=== PATIENT | male | born 1935 | race Caucasian/White ===

== ENCOUNTER 2021-02-25 02:51 | Outpatient (CLI) | payer BC, MEDICARE | END 2021-02-25 02:52 | disposition critical access hospital (66) | LOC: EMS 02:51 | DX: R06.02 Shortness of breath (principal) | CPT/HCPCS: A0425; A0427 ==

== ENCOUNTER 2021-02-25 03:02 | Emergency (ER) | payer BC, MEDICARE ==
[2021-02-25] MEDS ORDERED: SODIUM CHLORIDE 0.9% 1,000 ML IV STA (03:23)
[2021-02-25 03:32] LABS: BASOPHILS % (AUTO) 0.3 %; EOSINOPHILS % (AUTO) 0.1 %; LYMPHOCYTES # (AUTO) 0.7 10^3/uL (1.5-3.5); LYMPHOCYTES % (AUTO) 6.4 %; MEAN CORPUSCULAR HEMOGLOBIN 24.2 pg (27.0-31.0); MEAN CORPUSCULAR VOLUME 92.9 fL (80.0-94.0); MEAN PLATELET VOLUME 11.6 fL (7.4-11.4); MONOCYTES # (AUTO) 0.8 10^3/uL (0.0-1.0); MONOCYTES % (AUTO) 7.2 %; NEUTROPHILS # (AUTO) 9.2 10^3/uL (1.5-6.6); NEUTROPHILS % (AUTO) 84.1 %; NRBC ABSOLUTE COUNT (AUTO) 0.03 x10^3/uL; NUCLEATED RED BLOOD CELLS AUTO 0.3 /100WBC; PLT - PLATELET COUNT 283 10^3/uL (130-450); RED BLOOD COUNT 2.11 10^6/uL (4.70-6.10); RED CELL DISTRIBUTION WIDTH 15.9 % (12.0-15.0); WHITE BLOOD COUNT 10.9 x10^3/uL (4.8-10.8)
--- NOTE | 2021-02-25 03:33 | ED Physician Documentation ---
History of Present Illness - Stated complaint Stated Complaint: SOA - Chief complaint Chief Complaint: Resp - History obtained from History obtained from: Patient, Family (daughter (POA)), EMS, Other (records from [facility]) - Additonal information Additional information: 85yM with pmh dementia, paroxysmal afib, aortic valve replacement, htn, copd, hcv, chf, acquired stomach AVM, GIB, p/w lethargy and shortness of breath from [facility] on [facility] where he recently has been placed. EMS reported he was hypotensive and bradycardic in the field, improving after 1 mg atropine to 89/50 and HR in 50s. patient AOX1 on arrival to ED (thinks he is in [place] at [facility] and is unable to state month or year). Daughter who is POA has limited health information and most info is obtained from records from [facility] where he was most recently seen 01/23/21 with hb 8.3 at that time. He does have a living will with healthcare guidelines but no official POLST or DNR/DNI form. Further history limited by patient dementia. Review of Systems Unable to obtain: Dementia PD PAST MEDICAL HISTORY - Present Medications Home Medications: Ambulatory Orders Medication Instructions Recorded Confirmed Acetaminophen [Acetaminophen Extra 500 mg PO Q6HR PRN 02/25/21 02/25/21 Strength] Ascorbic Acid [Vitamin C] 500 mg PO DAILY 02/25/21 02/25/21 Atorvastatin [Lipitor] 20 mg PO DAILY 02/25/21 02/25/21 Calcium Carbonate [Tums (Calcium 500 mg PO TID 02/25/21 02/25/21 Carbonate 500mg)] Cholecalciferol (Vitamin D3) 1 cap PO BID 02/25/21 02/25/21 [Vitamin D3] Clopidogrel [Plavix] 1 tab PO DAILY 02/25/21 02/25/21 Cyanocobalamin (Vitamin B-12) 1 cap PO BID 02/25/21 02/25/21 [Vitamin B-12] Digoxin [Lanoxin] 125 mcg PO DAILY 02/25/21 02/25/21 Diltiazem HCl [Cardizem Cd] 360 mg PO DAILY 02/25/21 02/25/21 Ferrous Sulfate 325 mg PO DAILY 02/25/21 02/25/21 Furosemide [Lasix] 20 mg PO DAILY 02/25/21 02/25/21 Lisinopril [Zestril] 2.5 mg PO DAILY 02/25/21 02/25/21 Metoprolol Succinate 100 mg PO BID 02/25/21 02/25/21 Multivit-Min/FA/Lycopen/Lutein 1 tab PO DAILY 02/25/21 02/25/21 [Centrum Silver Men Tablet] Pantoprazole [Protonix] 40 mg PO BID 02/25/21 02/25/21 Ubidecarenone [Coenzyme Q-10] 1 cap PO TID 02/25/21 02/25/21 - Allergies Allergies/Adverse Reactions: Allergies Allergy/AdvReac Type Severity Reaction Status Date / Time lactose Allergy Unknown Verified 02/25/21 03:23 tramadol Allergy Unknown Verified 02/25/21 03:23 PD ED PE NORMAL - Vitals Vital signs reviewed: Yes - General General: Other (AOX1, elderly appearing, pale appearing) - HEENT HEENT: Atraumatic, PERRL, EOMI, Other (pale conjunctiva) - Neck Neck: Supple, no meningeal sign - Cardiac Cardiac: Other (bradycardic rate, regular rhythm) - Respiratory Respiratory: No respiratory distress, Clear bilaterally - Abdomen Abdomen: Non tender, Non distended - Derm Derm: Normal color, Warm and dry - Extremities Extremities: No deformity - Neuro Neuro: No motor deficit, No sensory deficit - Psych Psych: Normal mood, Normal affect Results - Vitals Vitals: Oxygen O2 Source Nasal cannula Oxygen Flow Rate 2 - EKG (time done) 0310 Rate: Rate (enter#) (53) Rhythm: NSR [place]: LAD - Labs Labs: Microbiology 02/25/21 03:31 Blood Culture - Preliminary Blood NO GROWTH AFTER 1 DAY 02/25/21 03:31 Blood Culture - Preliminary Blood NO GROWTH AFTER 1 DAY 02/25/21 03:10 Occult Blood - Final Stool Laboratory Tests 02/25/21 02/25/21 02/25/21 03:10 03:10 03:10 WBC 10.9 H RBC 2.11 L Hgb 5.1 L* Hct 19.6 L* MCV 92.9 MCH 24.2 L MCHC 26.0 L RDW 15.9 H Plt Count 283 MPV 11.6 H Neut # (Auto) 9.2 H Lymph # (Auto) 0.7 L [place] # (Auto) 0.8 Eos # (Auto) 0.0 Baso # (Auto) 0.0 Absolute Nucleated RBC 0.03 Nucleated RBC % 0.3 Manual Slide Review Indicated WBC Morphology NORMAL APPEARANCE Platelet Estimate NORMAL (130-450,000) Platelet Morphology NORMAL APPEARANCE RBC Morph Micro Appear 1+ POLYCHROMASIA PT INR APTT Sodium 144 Potassium 3.9 Chloride 114 H Carbon Dioxide 19 L Anion Gap 11.0 BUN 55 H Creatinine 0.9 Estimated GFR (MDRD) 81 L Glucose 111 H Lactic Acid Calcium 5.7 L* Magnesium Total Bilirubin 0.3 AST 17 ALT 12 Alkaline Phosphatase 31 L Troponin I High Sens 18.1 Total Protein 3.3 L Albumin 1.9 L Globulin 1.4 L Albumin/Globulin Ratio 1.4 Lipase 27 Urine Color Urine Clarity Urine pH Ur Specific [place] Urine Protein Urine Glucose (UA) Urine Ketones Urine Occult Blood Urine Nitrite Urine Bilirubin Urine Urobilinogen Ur Leukocyte Esterase Urine RBC Urine WBC Ur Squamous Epith Cells Urine Bacteria Urine Culture Comments Nasal Adenovirus (PCR) Nasal B. parapertussis DNA (PCR) Nasal Coronavir 229E PCR Nasal Coronavir HKU1 PCR Nasal Coronavir NL63 PCR Nasal Coronavir OC43 PCR Nasal Enterovir/Rhinovir PCR Nasal Influenza B PCR Nasal Influenza A PCR Nasal Parainfluen 1 PCR Nasal Parainfluen 2 PCR Nasal Parainfluen 3 PCR Nasal Parainfluen 4 PCR Nasal RSV (PCR) Nasal B.pertussis DNA PCR Nasal C.pneumoniae (PCR) Khris Human Metapneumo PCR Nasal M.pneumoniae (PCR) Nasal SARS-CoV-2 (PCR) Last Dose Date Last Dose Time Digoxin Blood Type Blood Type Recheck Antibody Screen Crossmatch IS Only 02/25/21 02/25/21 02/25/21 03:10 03:10 03:10 WBC RBC Hgb Hct MCV MCH MCHC RDW Plt Count MPV Neut # (Auto) Lymph # (Auto) [place] # (Auto) Eos # (Auto) Baso # (Auto) Absolute Nucleated RBC Nucleated RBC % Manual Slide Review WBC Morphology Platelet Estimate Platelet Morphology RBC Morph Micro Appear PT 15.3 H INR 1.4 H APTT 18.9 L Sodium Potassium Chloride Carbon Dioxide Anion Gap BUN Creatinine Estimated GFR (MDRD) Glucose Lactic Acid 5.8 H* Calcium Magnesium 1.6 L Total Bilirubin AST ALT Alkaline Phosphatase Troponin I High Sens Total Protein Albumin Globulin Albumin/Globulin Ratio Lipase Urine Color Urine Clarity Urine pH Ur Specific [place] Urine Protein Urine Glucose (UA) Urine Ketones Urine Occult Blood Urine Nitrite Urine Bilirubin Urine Urobilinogen Ur Leukocyte Esterase Urine RBC Urine WBC Ur Squamous Epith Cells Urine Bacteria Urine Culture Comments Nasal Adenovirus (PCR) Nasal B. parapertussis DNA (PCR) Nasal Coronavir 229E PCR Nasal Coronavir HKU1 PCR Nasal Coronavir NL63 PCR Nasal Coronavir OC43 PCR Nasal Enterovir/Rhinovir PCR Nasal Influenza B PCR Nasal Influenza A PCR Nasal Parainfluen 1 PCR Nasal Parainfluen 2 PCR Nasal Parainfluen 3 PCR Nasal Parainfluen 4 PCR Nasal RSV (PCR) Nasal B.pertussis DNA PCR Nasal C.pneumoniae (PCR) Khris Human Metapneumo PCR Nasal M.pneumoniae (PCR) Nasal SARS-CoV-2 (PCR) Last Dose Date 02/24/21 Last Dose Time 0800 Digoxin 0.7 Blood Type Blood Type Recheck Antibody Screen Crossmatch IS Only 02/25/21 02/25/21 02/25/21 03:30 03:32 03:55 WBC RBC Hgb Hct MCV MCH MCHC RDW Plt Count MPV Neut # (Auto) Lymph # (Auto) [place] # (Auto) Eos # (Auto) Baso # (Auto) Absolute Nucleated RBC Nucleated RBC % Manual Slide Review WBC Morphology Platelet Estimate Platelet Morphology RBC Morph Micro Appear PT INR APTT Sodium Potassium Chloride Carbon Dioxide Anion Gap BUN Creatinine Estimated GFR (MDRD) Glucose Lactic Acid Calcium Magnesium Total Bilirubin AST ALT Alkaline Phosphatase Troponin I High Sens Total Protein Albumin Globulin Albumin/Globulin Ratio Lipase Urine Color YELLOW Urine Clarity CLEAR Urine pH 5.0 Ur Specific [place] 1.025 Urine Protein NEGATIVE Urine Glucose (UA) NEGATIVE Urine Ketones NEGATIVE Urine Occult Blood NEGATIVE Urine Nitrite NEGATIVE Urine Bilirubin NEGATIVE Urine Urobilinogen 0.2 (NORMAL) Ur Leukocyte Esterase NEGATIVE Urine RBC 0-5 Urine WBC 0-3 Ur Squamous Epith Cells RARE Squamous Urine Bacteria Few Urine Culture Comments NOT INDICATED Nasal Adenovirus (PCR) NOT DETECTED Nasal B. parapertussis DNA (PCR) NOT DETECTED Nasal Coronavir 229E PCR NOT DETECTED Nasal Coronavir HKU1 PCR NOT DETECTED Nasal Coronavir NL63 PCR NOT DETECTED Nasal Coronavir OC43 PCR NOT DETECTED Nasal Enterovir/Rhinovir PCR NOT DETECTED Nasal Influenza B PCR NOT DETECTED Nasal Influenza A PCR NOT DETECTED Nasal Parainfluen 1 PCR NOT DETECTED Nasal Parainfluen 2 PCR NOT DETECTED Nasal Parainfluen 3 PCR NOT DETECTED Nasal Parainfluen 4 PCR NOT DETECTED Nasal RSV (PCR) NOT DETECTED Nasal B.pertussis DNA PCR NOT DETECTED Nasal C.pneumoniae (PCR) NOT DETECTED Khris Human Metapneumo PCR NOT DETECTED Nasal M.pneumoniae (PCR) NOT DETECTED Nasal SARS-CoV-2 (PCR) NOT DETECTED Last Dose Date Last Dose Time Digoxin Blood Type Blood Type Recheck O POSITIVE Antibody Screen Crossmatch IS Only 02/25/21 02/25/21 04:00 07:36 WBC RBC Hgb Hct MCV MCH MCHC RDW Plt Count MPV Neut # (Auto) Lymph # (Auto) [place] # (Auto) Eos # (Auto) Baso # (Auto) Absolute Nucleated RBC Nucleated RBC % Manual Slide Review WBC Morphology Platelet Estimate Platelet Morphology RBC Morph Micro Appear PT INR APTT Sodium Potassium Chloride Carbon Dioxide Anion Gap BUN Creatinine Estimated GFR (MDRD) Glucose Lactic Acid 1.1 Calcium Magnesium Total Bilirubin AST ALT Alkaline Phosphatase Troponin I High Sens Total Protein Albumin Globulin Albumin/Globulin Ratio Lipase Urine Color Urine Clarity Urine pH Ur Specific [place] Urine Protein Urine Glucose (UA) Urine Ketones Urine Occult Blood Urine Nitrite Urine Bilirubin Urine Urobilinogen Ur Leukocyte Esterase Urine RBC Urine WBC Ur Squamous Epith Cells Urine Bacteria Urine Culture Comments Nasal Adenovirus (PCR) Nasal B. parapertussis DNA (PCR) Nasal Coronavir 229E PCR Nasal Coronavir HKU1 PCR Nasal Coronavir NL63 PCR Nasal Coronavir OC43 PCR Nasal Enterovir/Rhinovir PCR Nasal Influenza B PCR Nasal Influenza A PCR Nasal Parainfluen 1 PCR Nasal Parainfluen 2 PCR Nasal Parainfluen 3 PCR Nasal Parainfluen 4 PCR Nasal RSV (PCR) Nasal B.pertussis DNA PCR Nasal C.pneumoniae (PCR) Khris Human Metapneumo PCR Nasal M.pneumoniae (PCR) Nasal SARS-CoV-2 (PCR) Last Dose Date Last Dose Time Digoxin Blood Type O POSITIVE Blood Type Recheck Antibody Screen NEGATIVE Crossmatch IS Only See Detail PD MEDICAL DECISION MAKING - ED course ED course: d/w POA Debbie Isbell who states she is feeling fuzzy and having trouble waking up but that most of his records are at [facility] in [place]. recent visit at [facility] [address] [place] in [place]. Patient has had multiple blood transfusions over the years [facility] but she is not sure if he has had one recently or if he has a GI doctor here. ng tube with 300 cc bloody output. d/w Dr. Ortiz for admission who has concerns patient is too medically ill for [facility] to manage. d/w daughter who states we should honor the patient's living will and he should not have life sustaining treatments if he has severe symptoms that cannot be relieved. patient with improvement in vitals s/p 1 U PRBC. Receiving second unit now. Dr. Ortiz reports to me that he had a goals of care discussion with POA who would like the patient to be DNR/DNI and would like to honor his living will which states no extreme interventions/procedures in event of severe illness. Dr. Ortiz would like to accept the patient for admission at [facility]. Immediately after this I spoke with [facility] Dr. Bush who states patient may be a candidate for endoscopy and cautery but that there are no beds available. [facility] states we have to contact the [facility] directly if we want to attempt transfer since they are boarding and have no bed availability. I called to update and share this information with daughter/POA who states she would like us to attempt transfer for possible endoscopy. d/w [facility] Dr. Rodgers who is accepting in transfer. d/w Dr. Ortiz who will suspend ICU orders at our facility. Departure - Departure Disposition: 02 Transfer Acute Care Hosp Clinical Impression: Pleural effusion, AVM (arteriovenous malformation), GIB (gastrointestinal bleeding), Anemia, Hypocalcemia Condition: Serious Discharge Date/Time: 02/25/21 08:09
[2021-02-25 03:36] LABS: HCT - HEMATOCRIT 19.6 % (42.0-52.0); HGB - HEMOGLOBIN 5.1 g/dL (14.0-18.0); SLIDE REVIEW? Indicated
[2021-02-25] MEDS ORDERED: PANTOPRAZOLE 40 MG TABLET PO STA (03:44)
[2021-02-25] MEDS ORDERED: PANTOPRAZOLE 40 MG VIAL IVP STA (03:51)
[2021-02-25] MEDS ORDERED: LIDOCAINE JELLY 2% 6 ML JEL.PF.APP TOP STA ×2 (03:51→04:00)
[2021-02-25] MEDS ORDERED: PANTOPRAZOLE 80 MG in SODIUM CHLORIDE 0.9% 100ML 100 ML IV STA (03:51)
[2021-02-25 04:06] LABS: INR 1.4 (0.8-1.2); PT - PROTHROMBIN TIME 15.3 secs (9.9-12.6)
[2021-02-25 04:13] LABS: ALBUMIN 1.9 g/dL (3.2-5.5); ALBUMIN/GLOBULIN RATIO 1.4 (1.0-2.2); BILIRUBIN,TOTAL 0.3 mg/dL (0.2-1.0); CREATININE 0.9 mg/dL (0.6-1.2); PARTIAL THROMBOPLASTIN TIME 18.9 secs (24.9-33.3); POTASSIUM 3.9 mmol/L (3.5-5.0); TOTAL PROTEIN 3.3 g/dL (6.7-8.2)
[2021-02-25] MEDS ORDERED: VANCOMYCIN INJ 1.25 GM in SODIUM CHLORIDE 0.9% 250 ML IV STA (04:24)
[2021-02-25] MEDS ORDERED: CEFEPIME 2 GM in SODIUM CHLORIDE 0.9% MINIBAG 100 ML IV STA (04:24)
[2021-02-25 04:25] LABS: CALCIUM 5.7 mg/dL (8.5-10.3)
[2021-02-25 04:26] LABS: PLATELET ESTIMATE, MANUAL NORMAL (130-450,000) (NORMAL); PLATELET MORPHOLOGY NORMAL APPEARANCE (NORMAL); WBC MORPHOLOGY (MULTIPLE) NORMAL APPEARANCE (NORMAL)
[2021-02-25] MEDS ORDERED: CALCIUM GLUCONATE 2,000 MG in SODIUM CHLORIDE 0.9% 100ML 100 ML IV STA (04:26)
[2021-02-25] MEDS ORDERED: MAGNESIUM SULFATE 2 GRAM 2 GM/50 ML BAG IV ONE (04:26)
[2021-02-25 04:38] LABS: BILIRUBIN,URINE NEGATIVE (NEGATIVE); CLARITY,URINE CLEAR (CLEAR); GLUCOSE, URINE (UA) NEGATIVE (NEGATIVE); KETONES,URINE (UA) NEGATIVE (NEGATIVE); LEUKOCYTE ESTERASE, URINE NEGATIVE (NEGATIVE); NITRITE,URINE NEGATIVE (NEGATIVE); OCCULT BLOOD,URINE NEGATIVE (NEGATIVE); PROTEIN,URINE NEGATIVE (NEGATIVE); UROBILINOGEN,URINE 0.2 (NORMAL) E.U./dL (NORMAL)
[2021-02-25 04:43] LABS: DIGOXIN 0.7 ng/mL; MAGNESIUM 1.6 mg/dL (1.7-2.8)
[2021-02-25 04:50] LABS: BACTERIA,URINE Few /HPF (None Seen); RBC,URINE 0-5 /HPF (0-5); SQUAMOUS EPITHELIAL CELL,UR RARE Squamous (<= Few); WBC,URINE 0-3 /HPF (0-3)
[2021-02-25 04:52] LABS: LACTIC ACID, VENOUS 5.8 mmol/L (0.5-2.2)
[2021-02-25] MEDS ORDERED: CALCIUM GLUCONATE 1000 MG/10 ML VIAL ONE (05:24)
[2021-02-25] MEDS ORDERED: VANCOMYCIN 1 GM VIAL ONE (05:24)
[2021-02-25] MEDS ORDERED: PANTOPRAZOLE 40 MG VIAL ONE (05:25)
[2021-02-25 06:32] LABS: CORONAVIRUS 229E-RESP PCR NOT DETECTED; CORONAVIRUS HKU1-RESP PCR NOT DETECTED; CORONAVIRUS NL63-RESP PCR NOT DETECTED; CORONAVIRUS OC43-RESP PCR NOT DETECTED; HUMAN METAPNEUMOVIRUS NOT DETECTED; RHINOVIRUS/ENTEROVIRUS NOT DETECTED; SARS-CoV-2 -RESP PCR PANEL NOT DETECTED
[2021-02-25 06:33] LABS: B. PARAPERTUSSIS- RESP PCR PAN NOT DETECTED; B. PERTUSSIS- RESP PCR PANEL NOT DETECTED; C. PNEUMONIAE- RESP PCR PANEL NOT DETECTED; INFLUENZA A- RESP PCR PANEL NOT DETECTED; INFLUENZA B - RESP PCR PANEL NOT DETECTED; M. PNEUMONIAE- RESP PCR PANEL NOT DETECTED; PARAINFLUENZA VIRUS 1 NOT DETECTED; PARAINFLUENZA VIRUS 2 NOT DETECTED; PARAINFLUENZA VIRUS 3 NOT DETECTED; PARAINFLUENZA VIRUS 4 NOT DETECTED; RSV- RESP PCR PANEL NOT DETECTED
[2021-02-25] MEDS ORDERED: SODIUM CHLORIDE FLUSH 0.9% 10 ML SYRINGE IVP PRN (06:59)
[2021-02-25] MEDS ORDERED: DEXTROSE 5%-0.45% NACL 1,000 ML IV SCH (07:00)
--- NOTE | 2021-02-25 07:07 | HISTORY & PHYSICAL EXAMINATION ---
History - Past Medical History Cardiovascular: reports: Hypertension, High cholesterol, Atrial flutter, Atrial fibrillation Respiratory: reports: COPD, Other Neuro: reports: Alzhiemer's, CVA GI: reports: GERD Psych: reports: Anxiety Musculoskeletal: reports: Chronic back pain MRSA Hx?: No Other Past Medical History: Presence of Prostatic Heart Valve: Atherosclerosis of Aorta: Chronic Bronchitis; Cerebral Ischemia; Bilat Hearing Loss; PVD; Ang iodysplasia; - Past Surgical History Cardiovascular: reports: Other - POLST Patient has POLST: No Meds/Allgy - Home Medications Home Medications: Ambulatory Orders Medication Instructions Recorded Confirmed Acetaminophen [Acetaminophen Extra 500 mg PO Q6HR PRN 02/25/21 02/25/21 Strength] Ascorbic Acid [Vitamin C] 500 mg PO DAILY 02/25/21 02/25/21 Atorvastatin [Lipitor] 20 mg PO DAILY 02/25/21 02/25/21 Calcium Carbonate [Tums (Calcium 500 mg PO TID 02/25/21 02/25/21 Carbonate 500mg)] Cholecalciferol (Vitamin D3) 1 cap PO BID 02/25/21 02/25/21 [Vitamin D3] Clopidogrel [Plavix] 1 tab PO DAILY 02/25/21 02/25/21 Cyanocobalamin (Vitamin B-12) 1 cap PO BID 02/25/21 02/25/21 [Vitamin B-12] Digoxin [Lanoxin] 125 mcg PO DAILY 02/25/21 02/25/21 Diltiazem HCl [Cardizem Cd] 360 mg PO DAILY 02/25/21 02/25/21 Ferrous Sulfate 325 mg PO DAILY 02/25/21 02/25/21 Furosemide [Lasix] 20 mg PO DAILY 02/25/21 02/25/21 Lisinopril [Zestril] 2.5 mg PO DAILY 02/25/21 02/25/21 Metoprolol Succinate 100 mg PO BID 02/25/21 02/25/21 Multivit-Min/FA/Lycopen/Lutein 1 tab PO DAILY 02/25/21 02/25/21 [Centrum Silver Men Tablet] Pantoprazole [Protonix] 40 mg PO BID 02/25/21 02/25/21 Ubidecarenone [Coenzyme Q-10] 1 cap PO TID 02/25/21 02/25/21 - Allergies Allergies/Adverse Reactions: Allergies Allergy/AdvReac Type Severity Reaction Status Date / Time lactose Allergy Unknown Verified 02/25/21 03:23 tramadol Allergy Unknown Verified 02/25/21 03:23 Exam - Vital Signs Vital Signs: Vital Signs x48h Temp Pulse Resp BP Pulse Ox 02/25/21 07:02 36.4 C L 78 17 105/42 L 100 02/25/21 06:48 36.4 C L 75 13 108/46 L 100 02/25/21 06:45 36.4 C L 76 12 99/43 L 02/25/21 06:30 36.4 C L 78 22 108/44 L 100 02/25/21 06:29 36.4 C L 79 22 108/44 L 02/25/21 06:22 36.2 C L 74 21 104/47 L 100 02/25/21 05:52 36.4 C L 66 19 103/73 96 02/25/21 05:51 36.3 C L 66 21 103/73 02/25/21 05:35 36.4 C L 67 14 99/40 L 100 02/25/21 05:20 36.2 C L 68 19 95/41 L 100 02/25/21 05:16 63 16 97/35 L 100 02/25/21 05:12 36.3 C L 63 19 97/37 L 100 02/25/21 05:05 36.4 C L 61 16 95/36 L 99 02/25/21 04:49 58 L 14 92/33 L 100 02/25/21 04:45 58 L 20 92/33 L 02/25/21 04:41 36.4 C L 58 L 21 92/32 L 100 02/25/21 04:32 57 L 19 98/31 L 100 02/25/21 04:30 36.6 C 57 L 17 98/31 L 02/25/21 04:25 36.2 C L 50 L 13 91/29 L 100 02/25/21 04:16 51 L 18 93/32 L 100 02/25/21 04:15 51 L 15 93/32 L 02/25/21 04:10 36.6 C 54 L 17 82/32 L 02/25/21 03:57 55 L 21 88/33 L 100 02/25/21 03:48 51 L 19 77/33 L 100 02/25/21 03:47 51 L 20 78/30 L 100 02/25/21 03:11 36.5 C 55 L 16 68/32 L 100 02/25/21 03:10 55 L 16 68/32 L 100 Conclusion/Plan - Lab Results Fish Bones: 02/25/21 03:10 02/25/21 03:10
--- NOTE | 2021-02-25 07:56 | XRAY Report ---
PROCEDURE: Chest 1 View X-Ray INDICATIONS: Chest Pain TECHNIQUE: One view of the chest was acquired. COMPARISON: None. FINDINGS: SUPPORT DEVICES: Sternotomy alignment maintained. Evidence of CABG and valve prosthesis. LUNGS/PLEURA: Moderate left pleural effusion with adjacent atelectasis. The right lung is essentially well aerated. No pneumothorax. MEDIASTINUM: The cardiac silhouette is partially obscured. BONES/SOFT TISSUES: No acute abnormality. IMPRESSION: 1.Moderate left pleural effusion with adjacent atelectasis. Concordant interpretation with pulmonary report. Reviewed by: Damion Lanier MD on 02/25/2021 7:54 AM [facility] Approved by: Damion Lanier MD on 02/25/2021 7:54 AM PST Station ID: [id number]
[2021-02-25] MEDS ORDERED: OCTREOTIDE 500 MCG in SODIUM CHLORIDE 0.9% 100ML 99 ML IV SCH (08:00)
[2021-02-25] MEDS ORDERED: PANTOPRAZOLE 80 MG in SODIUM CHLORIDE 0.9% 100ML 100 ML IV SCH (08:00)
[2021-02-25 08:08] VITALS: BP 115/49
[2021-02-25] MEDS ORDERED: SODIUM CHLORIDE FLUSH 0.9% 10 ML SYRINGE IVP SCH (09:00)
== END 2021-02-25 08:09 | disposition short-term general hospital (02) ==
LOC: ED 03:02
DX: J90 Pleural effusion, not elsewhere classified (principal); I95.9 Hypotension, unspecified; R00.1 Bradycardia, unspecified; D64.9 Anemia, unspecified; E83.51 Hypocalcemia; K92.2 Gastrointestinal hemorrhage, unspecified; Q27.33 Arteriovenous malformation of digestive system vessel; Z20.822 Contact with and (suspected) exposure to COVID-19; I11.0 Hypertensive heart disease with heart failure; I50.9 Heart failure, unspecified; J44.9 Chronic obstructive pulmonary disease, unspecified; I48.0 Paroxysmal atrial fibrillation; Z79.02 Long term (current) use of antithrombotics/antiplatelets; F03.90 Unspecified dementia, unspecified severity, without behavioral disturbance, psychotic disturbance, mood disturbance, and anxiety
CPT/HCPCS: 0202U; 36415; 36430; 43753; 71045; 80053; 80162; 81001; 82270; 83605; 83690; 83735; 84484; 85025; 85610; 85730; 86850; 86900; 86901; 86920; 87040; 93005; 96365; 96366; 96367; 96368; 96375; 96376; 99285; J3370; P9016; 87086

== ENCOUNTER 2021-02-25 08:12 | Outpatient (CLI) | payer BC, MEDICARE | END 2021-02-25 08:13 | disposition short-term general hospital (02) | LOC: EMS 08:12 | PROVIDERS: ATTEND Emergency Medicine | DX: K92.2 Gastrointestinal hemorrhage, unspecified (principal) | CPT/HCPCS: A0425; A0428 ==

== ENCOUNTER 2021-05-19 20:00 | Outpatient (CLI) | payer MEDICARE | END 2021-05-19 23:59 | disposition critical access hospital (66) | LOC: EMS 20:00 | DX: S01.83XA Puncture wound without foreign body of other part of head, initial encounter (principal); Z79.01 Long term (current) use of anticoagulants; W50.4XXA Accidental scratch by another person, initial encounter | CPT/HCPCS: A0425; A0429 ==

== ENCOUNTER 2021-05-19 20:14 | Emergency (ER) | payer MEDICARE ==
--- NOTE | 2021-05-19 20:41 | ED Physician Documentation ---
PD HPI SKIN - Stated complaint Stated Complaint: FOREHEAD SCRATCH/LAC - Chief complaint Chief Complaint: Laceration - History obtained from History obtained from: Patient - History of Present Illness Timing - onset: How many hours ago (3) Timing - details: Gradual onset Pain level max: 0 Pain level now: 0 Location: Scalp Contributing factors: Unknown Recently seen: Not recently seen - Additional information Additional information: spontaneous bleeding from specific site on right forehead/scalp x 3 hours; he says he might have been picking at the area but not memorably so, and he denies trauma. The bleeding has been persistent and brisk and thus comes to ED for evaluation. He takes plavix but no stronger blood thinners Review of Systems Skin: reports: Reviewed and negative PD PAST MEDICAL HISTORY - Past Medical History Cardiovascular: Hypertension, High cholesterol, Atrial flutter, Atrial fibril lation Respiratory: COPD, Other Neuro: Alzhiemer's, CVA GI: GERD Psych: Anxiety Musculoskeletal: Chronic back pain - Past Surgical History Past Surgical History: Yes Cardiovascular: Other - Present Medications Home Medications: Ambulatory Orders Medication Instructions Recorded Confirmed Acetaminophen [Acetaminophen Extra 500 mg PO Q6HR PRN 02/25/21 05/19/21 Strength] Ascorbic Acid [Vitamin C] 500 mg PO DAILY 02/25/21 05/19/21 Atorvastatin [Lipitor] 20 mg PO DAILY 02/25/21 05/19/21 Calcium Carbonate [Tums (Calcium 500 mg PO TID 02/25/21 05/19/21 Carbonate 500mg)] Cholecalciferol (Vitamin D3) 1 cap PO BID 02/25/21 05/19/21 [Vitamin D3] Clopidogrel [Plavix] 1 tab PO DAILY 02/25/21 05/19/21 Cyanocobalamin (Vitamin B-12) 1 cap PO BID 02/25/21 05/19/21 [Vitamin B-12] Digoxin [Lanoxin] 125 mcg PO DAILY 02/25/21 05/19/21 Diltiazem HCl [Cardizem Cd] 360 mg PO DAILY 02/25/21 02/25/21 Ferrous Sulfate 325 mg PO DAILY 02/25/21 05/19/21 Furosemide [Lasix] 20 mg PO DAILY 02/25/21 05/19/21 Lisinopril [Zestril] 2.5 mg PO DAILY 02/25/21 02/25/21 Metoprolol Succinate 100 mg PO BID 02/25/21 02/25/21 Multivit-Min/FA/Lycopen/Lutein 1 tab PO DAILY 02/25/21 05/19/21 [Centrum Silver Men Tablet] Pantoprazole [Protonix] 40 mg PO BID 02/25/21 05/19/21 Ubidecarenone [Coenzyme Q-10] 1 cap PO TID 02/25/21 05/19/21 - Allergies Allergies/Adverse Reactions: Allergies Allergy/AdvReac Type Severity Reaction Status Date / Time lactose Allergy Unknown Verified 05/19/21 20:24 tramadol Allergy Unknown Verified 05/19/21 20:24 - Social History Does the pt smoke?: No Smoking Status: Never smoker Does the pt drink ETOH?: No Does the pt have substance abuse?: No - Immunizations Immunizations are current?: Yes - POLST Patient has POLST: No PD ED PE NORMAL - Vitals Vital signs reviewed: Yes - General General: Alert and oriented X 3, No acute distress, Well developed/nourished PD ED PE EXPANDED - HEENT HEENT: Other (pin-point source of brisk, nonpulsatile bleeding right frontal scalp without tenderness or visible abrasion or laceration) Results - Vitals Vitals: Vital Signs - 24 hr 05/19/21 05/19/21 20:19 22:07 Temperature 36.3 C L Heart Rate 71 80 Respiratory 16 18 Rate Blood Pressure 150/59 H 128/79 O2 Saturation 98 97 Oxygen O2 Source Nasal cannula PD MEDICAL DECISION MAKING - ED course Complexity details: considered differential, d/w patient ED course: applying pressure to various areas adjacent to the bleed, it was eventually noted that bleeding would slow and even stop with pressure applied in inferolateral distribution adjacent to wound. While hemostasis thus achieved, Dermabond was then applied in two layers. A small amount of blood infused into the first layer, which was expected. The glue was allowed to dry before pressure was released, and there was no further bleeding once pressure was released. Departure - Departure Disposition: 01 Home, Self Care Clinical Impression: Bleeding Condition: Good Instructions: Wound Care Comments: As we discussed, do not put any petroleum-based ointments/salves on the glue (such as bacitracin, neosporin, polysporin), as these typically will dissolve the glue. Eventually the glue will flake/scab off and the blood vessel will hopefully have clotted / closed off by that time. Discharge Date/Time: 05/19/21 22:26
[2021-05-19] MEDS ORDERED: LIDOCAINE 1%-EPI 1:100000 20 ML MDV SUBQ STA (20:55)
[2021-05-19 22:08] VITALS: BP 128/79
== END 2021-05-19 22:26 | disposition home or self-care (01) ==
LOC: EDUNIT# → ED 20:14
DX: R58 Hemorrhage, not elsewhere classified (principal)
CPT/HCPCS: 99281; 99283

== ENCOUNTER 2021-05-19 22:20 | Outpatient (CLI) | payer MEDICARE | END 2021-05-19 22:21 | disposition home or self-care (01) | LOC: EMS 22:20 | PROVIDERS: ATTEND Emergency Medicine | DX: F03.90 Unspecified dementia, unspecified severity, without behavioral disturbance, psychotic disturbance, mood disturbance, and anxiety (principal); R41.0 Disorientation, unspecified; Z99.81 Dependence on supplemental oxygen | CPT/HCPCS: A0425; A0428 ==

== ENCOUNTER 2022-02-05 13:34 | Outpatient (CLI) | payer MEDICARE | END 2022-02-05 23:59 | disposition critical access hospital (66) | LOC: EMS 13:34 | DX: R58 Hemorrhage, not elsewhere classified (principal); Z79.02 Long term (current) use of antithrombotics/antiplatelets | CPT/HCPCS: A0425; A0429 ==

== ENCOUNTER 2022-02-13 14:18 | Outpatient (CLI) | payer MEDICARE | END 2022-02-13 14:19 | disposition critical access hospital (66) | LOC: EMS 14:18 | DX: R06.02 Shortness of breath (principal); R09.02 Hypoxemia; I48.91 Unspecified atrial fibrillation; Z99.81 Dependence on supplemental oxygen | CPT/HCPCS: A0425; A0429 ==

== ENCOUNTER 2022-02-13 14:35 | Emergency (ER) | payer MEDICARE ==
[2022-02-13] MEDS ORDERED: IPRATROPIUM/ALBUTEROL 3 ML NEB INH STA (14:41)
--- NOTE | 2022-02-13 14:42 | ED Physician Documentation ---
PD HPI DYSPNEA - Stated complaint Stated Complaint: RESP DISTRESS - History obtained from History obtained from: Patient, EMS, Caregiver - Additional information Additional information: 86-year-old gentleman presents by ambulance for shortness of breath. He is an unreliable historian due to dementia but nurse practitioner [place] from [facility] called me prior to his arrival. He has a history of COPD on home oxygen and A. fib with intermittent RVR currently controlled with metoprolol 100 mg twice a day, Cardizem 120 mg twice a day, and digoxin 0.125 mg once a day. Reportedly has been short of breath for hours to days, they noted a pulse oximetry of 85% on his home oxygen at the facility. Review of Systems Unable to obtain: Confused, Dementia PD PAST MEDICAL HISTORY - Past Medical History Cardiovascular: Hypertension, High cholesterol, Atrial flutter, Atrial fibrillation Respiratory: COPD, Other Neuro: Alzhiemer's, CVA GI: GERD Psych: Anxiety Musculoskeletal: Chronic back pain - Past Surgical History Past Surgical History: Yes Cardiovascular: Other - Present Medications Home Medications: Ambulatory Orders Medication Instructions Recorded Confirmed Acetaminophen [Acetaminophen Extra 500 mg PO Q6HR PRN 02/25/21 05/19/21 Strength] Ascorbic Acid [Vitamin C] 500 mg PO DAILY 02/25/21 05/19/21 Atorvastatin [Lipitor] 20 mg PO DAILY 02/25/21 05/19/21 Calcium Carbonate [Tums (Calcium 500 mg PO TID 02/25/21 05/19/21 Carbonate 500mg)] Cholecalciferol (Vitamin D3) 1 cap PO BID 02/25/21 05/19/21 [Vitamin D3] Clopidogrel [Plavix] 1 tab PO DAILY 02/25/21 05/19/21 Cyanocobalamin (Vitamin B-12) 1 cap PO BID 02/25/21 05/19/21 [Vitamin B-12] Digoxin [Lanoxin] 125 mcg PO DAILY 02/25/21 05/19/21 Diltiazem HCl [Cardizem Cd] 360 mg PO DAILY 02/25/21 02/25/21 Ferrous Sulfate 325 mg PO DAILY 02/25/21 05/19/21 Furosemide [Lasix] 20 mg PO DAILY 02/25/21 05/19/21 Lisinopril [Zestril] 2.5 mg PO DAILY 02/25/21 02/25/21 Metoprolol Succinate 100 mg PO BID 02/25/21 02/25/21 Multivit-Min/FA/Lycopen/Lutein 1 tab PO DAILY 02/25/21 05/19/21 [Centrum Silver Men Tablet] Pantoprazole [Protonix] 40 mg PO BID 02/25/21 05/19/21 Ubidecarenone [Coenzyme Q-10] 1 cap PO TID 02/25/21 05/19/21 Doxycycline Hyclate 100 mg PO BID #14 cap 02/13/22 predniSONE [Deltasone] 20 mg PO [id number] #21 tab 02/13/22 - Allergies Allergies/Adverse Reactions: Allergies Allergy/AdvReac Type Severity Reaction Status Date / Time aspirin Allergy Unknown Verified 02/13/22 14:41 lactose Allergy Unknown Verified 02/13/22 14:41 tramadol Allergy Unknown Verified 02/13/22 14:41 - Social History Does the pt smoke?: No Smoking Status: Never smoker Does the pt drink ETOH?: No Does the pt have substance abuse?: No - Immunizations Immunizations are current?: Yes - POLST Patient has POLST: No PD ED PE NORMAL - Vitals Vital signs reviewed: Yes - General General: No acute distress, Well developed/nourished, Other (He is alert and oriented to person only) - HEENT HEENT: PERRL, EOMI - Neck Neck: Supple, no meningeal sign, No bony TTP - Cardiac Cardiac: Other (Irregularly irregular without murmur, hyperdynamic precordium) - Respiratory Respiratory: Other (Mild tachypnea with decreased breath sounds throughout and rhonchi at the bases) - Abdomen Abdomen: Normal bowel sounds, Soft, Non tender - Derm Derm: Normal color, Warm and dry - Extremities Extremities: Other - Neuro Neuro: Normal speech, Other (Alert and oriented to person but not place, time, nor events) Results - Vitals Vitals: Vital Signs - 24 hr 02/13/22 02/13/22 02/13/22 14:41 14:46 15:13 Temperature 36.5 C 36.5 C Heart Rate 88 88 90 Respiratory 24 Rate Blood Pressure 147/100 H 147/100 H O2 Saturation 98 98 If not protocol 2 3 : Oxygen Flow, liters/minute Oxygen O2 Source Nasal cannula Oxygen Flow Rate 2 - EKG (time done) 1508 Rate: Rate (enter#) (102) Rhythm: Atrial fibrillation (w pvcs) [place]: Normal Intervals: Prolonged QT Ischemia: Non specific changes - Labs Labs: Laboratory Tests 02/13/22 02/13/22 02/13/22 14:57 14:57 14:57 WBC 12.5 H RBC 3.65 L Hgb 10.7 L Hct 37.2 L MCV 101.9 H MCH 29.3 MCHC 28.8 L RDW 13.2 Plt Count 225 MPV 10.0 Neut # (Auto) 10.4 H Lymph # (Auto) 0.6 L [place] # (Auto) 1.4 H Eos # (Auto) 0.0 Baso # (Auto) 0.1 Absolute Nucleated RBC 0.00 Nucleated RBC % 0.0 Manual Slide Review Indicated WBC Morphology NORMAL APPEARANCE Platelet Estimate NORMAL (130-450,000) Platelet Morphology NORMAL APPEARANCE RBC Morph Micro Appear 1+ POLYCHROMASIA VBG pH VBG pCO2 VBG pO2 VBG HCO3 VBG Total CO2 VBG O2 Saturation VBG Base Excess Sodium 141 Potassium 4.9 Chloride 93 L Carbon Dioxide 39 H* Anion Gap 9.0 BUN 23 H Creatinine 1.0 Estimated GFR (MDRD) 71 L Glucose 129 H Calcium 9.3 Total Bilirubin 0.5 AST 25 ALT 33 Alkaline Phosphatase 78 Troponin I High Sens B-Natriuretic Peptide 703 H Total Protein 7.3 Albumin 4.5 Globulin 2.8 Albumin/Globulin Ratio 1.6 Lipase 45 02/13/22 02/13/22 14:57 15:47 WBC RBC Hgb Hct MCV MCH MCHC RDW Plt Count MPV Neut # (Auto) Lymph # (Auto) [place] # (Auto) Eos # (Auto) Baso # (Auto) Absolute Nucleated RBC Nucleated RBC % Manual Slide Review WBC Morphology Platelet Estimate Platelet Morphology RBC Morph Micro Appear VBG pH 7.360 VBG pCO2 71.7 H VBG pO2 36.7 VBG HCO3 39.6 H VBG Total CO2 41.8 H VBG O2 Saturation 70.1 VBG Base Excess 11.6 H Sodium Potassium Chloride Carbon Dioxide Anion Gap BUN Creatinine Estimated GFR (MDRD) Glucose Calcium Total Bilirubin AST ALT Alkaline Phosphatase Troponin I High Sens 16.0 B-Natriuretic Peptide Total Protein Albumin Globulin Albumin/Globulin Ratio Lipase - Rads (name of study) 1x cxr Radiology: EMP read contemporaneously (Single view chest x-ray demonstrates moderate pleural effusion which appears chronic compared to last year. Possible trace right pleural effusion) PD MEDICAL DECISION MAKING - ED course ED course: 86-year-old gentleman with underlying COPD presents with reported shortness of breath. History is somewhat limited by dementia, chest x-ray showing a chronic left pleural effusion but no clear fluid overload. BNP just over 700, no priors available for comparison. Examination is really more consistent with COPD and he was feeling better after a DuoNeb here, then we walked him on his usual oxygen and he did fine without desaturations. He received 1 dose of Lasix here, but will not do it ongoing necessarily but I notified the nurse practitioner at [facility] about the findings. Departure - Departure Disposition: Home, Self Care Clinical Impression: Moderate COPD (chronic obstructive pulmonary disease) Condition: Good Record reviewed to determine appropriate education?: Yes Instructions: COPD Dc Prescriptions: predniSONE [Deltasone] 20 mg PO [id number] #21 tab Doxycycline Hyclate 100 mg PO BID #14 cap Comments: Dwight was seen today for shortness of breath which seems like it is mostly related to a COPD exacerbation as he improved with a nebulizer treatment here. There may may be a minor component of heart failure associated with this and he did get 1 dose of IV Lasix here. I am prescribing steroids and antibiotics. Call your doctor to arrange a follow-up appointment, make the next available appointment. In the interim, return anytime if worse or if new symptoms develop.
--- NOTE | 2022-02-13 15:05 | XRAY Report ---
PROCEDURE: Chest 1 View X-Ray INDICATIONS: dyspnea TECHNIQUE: One view of the chest was acquired. COMPARISON: Chest x-ray 02/25/2021 FINDINGS: Surgical changes and devices: Sternal wires and valve replacement are noted. Lungs and pleura: There is a moderate left effusion, relatively stable compared to prior exam. There is minimal blunting of the right costophrenic angle. Mediastinum: Mediastinal contours appear normal. Heart size is normal. Bones and chest wall: No suspicious bony lesions. Overlying soft tissues appear unremarkable. IMPRESSION: Persistent moderate left effusion since 2020. Trace blunting of the right costophrenic angle suggestive of minimal fluid versus scarring. Reviewed by: Sheridan Lozano MD on 02/13/2022 3:03 PM PST Approved by: Sheridan Lozano MD on 02/13/2022 3:03 PM PST Station ID: [id number]
[2022-02-13 15:07] LABS: BASOPHILS # (AUTO) 0.1 10^3/uL (0.0-0.1); BASOPHILS % (AUTO) 0.5 %; EOSINOPHILS % (AUTO) 0.3 %; HCT - HEMATOCRIT 37.2 % (42.0-52.0); HGB - HEMOGLOBIN 10.7 g/dL (14.0-18.0); LYMPHOCYTES # (AUTO) 0.6 10^3/uL (1.5-3.5); LYMPHOCYTES % (AUTO) 4.9 %; MEAN CORPUSCULAR HEMOGLOBIN 29.3 pg (27.0-31.0); MEAN CORPUSCULAR HGB CONC 28.8 g/dL (32.0-36.0); MEAN CORPUSCULAR VOLUME 101.9 fL (80.0-94.0); MONOCYTES # (AUTO) 1.4 10^3/uL (0.0-1.0); NEUTROPHILS # (AUTO) 10.4 10^3/uL (1.5-6.6); PLT - PLATELET COUNT 225 10^3/uL (130-450); RED BLOOD COUNT 3.65 10^6/uL (4.70-6.10); RED CELL DISTRIBUTION WIDTH 13.2 % (12.0-15.0); WHITE BLOOD COUNT 12.5 x10^3/uL (4.8-10.8)
[2022-02-13 15:38] LABS: ALBUMIN 4.5 g/dL (3.2-5.5); ALBUMIN/GLOBULIN RATIO 1.6 (1.0-2.2); BILIRUBIN,TOTAL 0.5 mg/dL (0.2-1.0); CALCIUM 9.3 mg/dL (8.5-10.3); POTASSIUM 4.9 mmol/L (3.5-5.0); TOTAL PROTEIN 7.3 g/dL (6.7-8.2)
[2022-02-13 15:44] LABS: PLATELET ESTIMATE, MANUAL NORMAL (130-450,000) (NORMAL); PLATELET MORPHOLOGY NORMAL APPEARANCE (NORMAL); SLIDE REVIEW? Indicated; WBC MORPHOLOGY (MULTIPLE) NORMAL APPEARANCE (NORMAL)
[2022-02-13 15:54] LABS: VBG BASE EXCESS 11.6 mmol/L (-2 - +2); VBG HCO3 39.6 mmol/L (23-28); VBG OXYGEN SATURATION 70.1 % (60-80); VBG PCO2 71.7 mmHg (41-51); VBG PH 7.36 (7.31-7.41); VBG PO2 36.7 mmHg (25-47); VBG TOTAL CO2 41.8 mmol/L (24-29)
[2022-02-13] MEDS ORDERED: predniSONE 20 MG TABLET PO STA (16:58)
[2022-02-13] MEDS ORDERED: FUROSEMIDE 20 MG/2 ML VIAL IVP STA (16:58)
[2022-02-13] MEDS ORDERED: DOXYCYCLINE 100 MG TABLET PO STA (16:58)
[2022-02-13 17:27] VITALS: BP 130/90
== END 2022-02-13 17:27 | disposition home or self-care (01) ==
LOC: ED 14:35
DX: J44.9 Chronic obstructive pulmonary disease, unspecified (principal); J90 Pleural effusion, not elsewhere classified; I48.91 Unspecified atrial fibrillation; E78.00 Pure hypercholesterolemia, unspecified; G30.9 Alzheimer's disease, unspecified; F02.80 Dementia in other diseases classified elsewhere, unspecified severity, without behavioral disturbance, psychotic disturbance, mood disturbance, and anxiety
CPT/HCPCS: 36415; 71045; 80053; 82803; 83690; 83880; 84484; 85025; 93005; 94640; 96374; 99281; 99284; A9270; J7512

== ENCOUNTER 2022-02-13 17:26 | Outpatient (CLI) | payer MEDICARE | END 2022-02-13 17:27 | disposition home or self-care (01) | LOC: EMS 17:26 | PROVIDERS: ATTEND Emergency Medicine | DX: R41.0 Disorientation, unspecified (principal); Z99.81 Dependence on supplemental oxygen; F03.90 Unspecified dementia, unspecified severity, without behavioral disturbance, psychotic disturbance, mood disturbance, and anxiety | CPT/HCPCS: A0425; A0428 ==

== ENCOUNTER 2022-03-21 07:13 | Outpatient (CLI) | payer MEDICARE | END 2022-03-21 07:14 | disposition E | LOC: EMS 07:13 ==